=== PATIENT | female | born 1960 | race Caucasian/White ===

== ENCOUNTER 2016-07-28 16:25 | Emergency (ER) | payer BC ==
[2016-07-28] MEDS ORDERED: HYDROMORPHONE HCL 1 MG/ML CPJ IM ONE (17:05)
[2016-07-28] MEDS ORDERED: PROMETHAZINE HCL 25 MG/ML VIAL IM ONE (17:05)
[2016-07-28] MEDS ORDERED: IBUPROFEN 600 MG TABLET PO ONE (17:19)
[2016-07-28] MEDS ORDERED: IBUPROFEN 400 MG TABLET PO ONE (17:23)
--- NOTE | 2016-07-28 17:26 | Emergency Department Record ---
History of Present Illness - General Chief complaint: Lower Extremity Pain Stated complaint: R KNEE INJURY Time Seen by Provider: 07/28/16 16:53 Source: Patient Mode of Arrival: Wheelchair Limitations: No limitations - History of Present Illness Initial comments: pt was stepping onto a bus when she heard and felt a sudden pop in the back of her knee and had sudden pain and inability to walk.. MD Complaint: Extremity pain, Joint pain Onset/Timin -: Hour(s) Location: Right, Knee History of Same: Yes Radiation: Proximal, Distal Quality: Sharp Consistency: Intermittent Improves with: Immobilization Worsens with: Exertion, Walking, Weight bearing Associated Symptoms: Denies other symptoms - Related Data Home Medications Medication Instructions Recorded Confirmed Last Taken Levothyroxine Sodium [Levoxyl] 125 mcg PO DAILY 04/15/14 07/28/16 07/28/16 Albuterol Sulfate [Proair Hfa] 1 - 2 puff IH .EVERY 4-6 HOURS PRN 07/28/1607/28 Unknown Budesonide/Formoterol Fumarate 1 inh INH DAILY 07/28/16 07/28/16 07/28/16 [Symbicort 160-4.5 Mcg Inhaler] Hydrochlorothiazide [Hctz 12.5MG] 25 mg PO DAILY 07/28/16 07/28/16 07/28/16 Previous Rx's Medication Instructions Recorded Acetaminophen with Codeine 1 tab PO Q6H #14 tab 07/28/16 [Tylenol with Codeine #3] Allergies Allergy/AdvReac Type Severity Reaction Status Date / Time No Known Drug Allergies Allergy Verified 07/28/16 16:39 Travel Screening - Travel/Exposure Within Last 30 Days Have you traveled within the last 30 days?: No Review of Systems Reviewed: No additional complaints except as noted below Constitutional: Reports: As per HPI. Denies: Chills, Fever, Malaise, Night sweats, Weakness, Weight change Eyes: Reports: As per HPI. Denies: Eye discharge, Eye pain, Photophobia, Vision change ENT: Reports: As per HPI. Denies: Congestion, Dental pain, Ear pain, Epistaxis , Hearing loss, Throat pain Respiratory: Reports: As per HPI. Denies: Cough, Dyspnea, Hemoptysis, Stridor, Wheezes Cardiovascular: Reports: As per HPI. Denies: Arrhythmia, Chest pain, Dyspnea on exertion, Edema, Murmurs, Orthopnea, Palpitations, Paroxysmal nocturnal dyspnea, Rheumatic Fever, Syncope Endocrine: Reports: As per HPI. Denies: Fatigue, Heat or cold intolerance, Polydipsia, Polyuria Gastrointestinal: Reports: As per HPI. Denies: Abdominal pain, Constipation, Diarrhea, Hematemesis, Hematochezia, Melena, Nausea, Vomiting Genitourinary: Reports: As per HPI. Denies: Abnormal menses, Discharge, Dyspareunia, Dysuria, Frequency, Hematuria, Incontinence, Retention, Urgency Musculoskeletal: Reports: As per HPI. Denies: Arthralgia, Back pain, Gout, Joint swelling, Myalgia, Neck pain Skin: Reports: As per HPI. Denies: Bruising, Change in color, Change in hair/ nails, Lesions, Pruritus, Rash Neurological: Reports: As per HPI. Denies: Abnormal gait, Confusion, Headache, Numbness, Paresthesias, Seizure, Tingling, Tremors, Vertigo, Weakness Psychiatric: Reports: As per HPI. Denies: Anxiety, Auditory hallucinations, Depression, Homicidal thoughts, Suicidal thoughts, Visual hallucinations Hematological/Lymphatic: Reports: As per HPI. Denies: Anemia, Blood Clots, Easy bleeding, Easy bruising, Swollen glands Past Medical History - SOCIAL HISTORY Smoking Status: Former smoker Alcohol Use: None Drug Use: None - RESPIRATORY Hx Respiratory Disorders: Yes Hx COPD: Yes - CARDIOVASCULAR Hx Cardio Disorders: Yes Hx Hypertension: Yes - NEURO Hx Neuro Disorders: No - GI Hx GI Disorders: No - Hx Genitourinary Disorders: No - ENDOCRINE Hx Endocrine Disorders: Yes Hx Thyroid Disease: Yes - MUSCULOSKELETAL Hx Musculoskeletal Disorders: No - PSYCH Hx Psych Problems: No - HEMATOLOGY/ONCOLOGY Hx Hematology/Oncology Disorders: No Family Medical History Any Significant Family History?: No Physical Exam - General General Appearance: Alert, Oriented x3, Cooperative, No acute distress - Head Head exam: Normal inspection - Eye Eye exam: Normal appearance, PERRL, EOMI Pupils: Normal accommodation - ENT ENT exam: Normal exam, Mucous membranes moist, Normal external ear exam, Normal orophraynx, TM's normal bilaterally Ear exam: Normal external inspection. negative: External canal tenderness Nasal Exam: Normal inspection. negative: Discharge, Sinus tenderness Mouth exam: Normal external inspection, Tongue normal Teeth exam: Normal inspection. negative: Dental caries Throat exam: Normal inspection. negative: Tonsillar erythema, Tonsillar exudate - Neck Neck exam: Normal inspection, Full ROM. negative: Tenderness - Respiratory Respiratory exam: Normal lung sounds bilaterally. negative: Respiratory distress - Cardiovascular Cardiovascular Exam: Regular rate, Normal rhythm, Normal heart sounds - GI/Abdominal GI/Abdominal exam: Soft, Normal bowel sounds. negative: Tenderness - Rectal Rectal exam: Deferred - exam: Deferred - Extremities Extremities exam: Normal capillary refill, Tenderness. negative: Normal inspection, Full ROM Image of Full Body: 1 - tender, , no bunching of hamstring or gastroc, achilles intact - Back Back exam: Reports: Normal inspection, Full ROM. Denies: Muscle spasm, Rash noted, Tenderness - Neurological Neurological exam: Alert, Normal gait, Oriented X3, Reflexes normal - Psychiatric Psychiatric exam: Normal affect, Normal mood - Skin Skin exam: Dry, Intact, Normal color, Warm Course Vital Signs 07/28/16 16:33 Temperature 98.4 F Pulse Rate 72 Respiratory 20 Rate Blood Pressure 182/108 Pulse Ox 99 Disposition Disposition: Discharge Clinical Impression: Tear, knee, posterior cruciate ligament Qualifiers: Encounter type: initial encounter Laterality: right Qualified Code(s): S83.521A - Sprain of posterior cruciate ligament of right knee, initial encounter Disposition: Home, Self-Care Condition: (1) Good Instructions: Posterior Cruciate Ligament Injury (ED), Knee Immobilizer (ED) Additional Instructions: follow up with dr forrest . return sooner if worse Prescriptions: Acetaminophen with Codeine [Tylenol with Codeine #3] 1 tab PO Q6H #14 tab Referrals: SOURAV FORREST [DOCTOR OF OSTEOPATH] - [facility] [Provider Group] Forms: Patient Portal Access
[2016-07-28] MEDS ORDERED: ACETAMINOPHEN/CODEINE TABLET PO PRN (19:36)
--- NOTE | 2016-07-30 15:02 | RADIOLOGY REPORT ---
EXAM: RIGHT KNEE HISTORY: PATIENT FELL TODAY WITH RIGHT KNEE INJURY AND PAIN POSTERIORLY. TECHNIQUE: Four views of the right knee were obtained. Comparison: None. Encounter: Initial. FINDINGS: Mild degenerative arthritis right knee. No definite acute fracture, dislocation, or joint effusion identified. IMPRESSION: MILD DEGENERATIVE ARTHRITIS WITH NO DEFINITE FRACTURE OF THE RIGHT KNEE IDENTIFIED. JOB NUMBER: [id number] MTDD
== END 2016-07-28 20:04 | disposition home or self-care (01) ==
LOC: ER 16:25
DX: S83.521A Sprain of posterior cruciate ligament of right knee, initial encounter (principal); X50.9XXA Other and unspecified overexertion or strenuous movements or postures, initial encounter
CPT/HCPCS: 99283

== ENCOUNTER 2016-08-14 08:43 | Day surgery (SDC) | payer OTHER ==
[~2016-08-14 08:43] MED LIST: ACETAMINOPHEN 1,000 MG/100 ML BTL IV ONE
[2016-08-14] MEDS ORDERED: PROPOFOL 10 MG/ML VIAL IV ONE (14:00)
[2016-08-14] MEDS ORDERED: MIDAZOLAM HCL 2MG/2ML VIAL IV ONE (14:00)
[2016-08-14] MEDS ORDERED: LIDOCAINE 2% MDV (20MG/ML) 20ML VIAL IV ONE (14:00)
[2016-08-14] MEDS ORDERED: SEVOFLURANE 250 ML INH ONE (14:00)
[2016-08-14] MEDS ORDERED: ONDANSETRON HCL IV 4 MG/2 ML VIAL IVP ONE (14:00)
[2016-08-14] MEDS ORDERED: KETOROLAC 30 MG/ML VIAL IVP ONE (14:00)
[2016-08-14] MEDS ORDERED: FENTANYL PF 100MCG/2ML VIAL IV ONE (14:00)
[2016-08-14] MEDS ORDERED: HYDROMORPHONE HCL 2 MG/ML VIAL IV ONE (15:27)
[2016-08-14] MEDS ORDERED: BUPIVACAINE 0.25% W/EPI MPF 30ML VIAL IVP ONE (15:27)
[2016-08-14] MEDS ORDERED: MORPHINE SULFATE 5 MG/ML PFS IVP ONE (15:27)
[2016-08-14] MEDS ORDERED: OXYCODONE HCL/APAP 5MG/325MG TABLET PO ONE (15:27)
--- NOTE | 2016-08-19 11:20 | Operative Note ---
DATE OF SURGERY: 08/14/2016 Surgeon: Luis Polanco DO PREOPERATIVE DIAGNOSES: 1. Torn lateral meniscus of the right knee. 2. Chondromalacia of the right knee. POSTOPERATIVE DIAGNOSES: 1. Torn lateral meniscus of the right knee. 2. Chondromalacia of the medial femoral condyle and patella, right knee. OPERATION: 1. Arthroscopic partial lateral meniscectomy, right knee. 2. Arthroscopic chondroplasty of medial femoral condyle, right knee. PROCEDURE: This 56-year-old female was taken to the operating room and placed in the supine position on the operating room table where general anesthesia was induced. The right lower extremity was elevated. It was exsanguinated and tourniquet inflated to 300 mmHg. Arthroscopic knee trujillo applied. Right knee prepped with Hibiclens and draped in the usual sterile fashion. An inferolateral portal was established for the 4 mm arthroscope, and initial evaluation of the joint demonstrated normal appearance of the suprapatellar pouch; however, the patient did have grade 2 chondromalacia of the patella involving all articulating surfaces but it was not grossly unstable and was not further disturbed. The trochlea appeared to be relatively normal. The medial compartment was entered and probing of the medial compartment demonstrated grade 2 chondromalacia of the entire weightbearing surface of the medial femoral condyle with some loose flaps of articular cartilage which were shaved with the rotating shaver. Probing of the medial meniscus did not reveal any pathology. The intercondylar notch was examined and found to be normal. The lateral compartment was entered, and the patient had a tear of the posterior horn at the root of the meniscus but the root itself did not appear to be involved. A flap type tear was present. We resected the unstable fragments of the meniscus utilizing the rotating shaver and basket forceps. The small radial tears of the body of the lateral meniscus and anterior horn were also present, and these were shaved with the rotating shaver. The lateral meniscus was then re-probed and confirmed to be stable. The joint was irrigated and suctioned and the instruments were removed. The portals were infiltrated with 0.25% Marcaine with epinephrine. Sterile dressings applied. Tourniquet and knee trujillo released, and the patient taken to the recovery room in satisfactory condition. GROSS PATHOLOGY: This patient demonstrated tear of the posterior horn near the root of the lateral meniscus as well as small radial tears around the body and anterior horn. Also a grade 2 chondromalacia of the patella and medial femoral condyle was present as described above. CC: MD ALYSA Carrillo
== END 2016-08-14 11:40 | disposition home or self-care (01) ==
LOC: SUR 08:43
PROVIDERS: ATTEND Orthopaedic Surgery
DX: S83.241A Other tear of medial meniscus, current injury, right knee, initial encounter (principal); I10 Essential (primary) hypertension; E03.9 Hypothyroidism, unspecified; M94.261 Chondromalacia, right knee
CPT/HCPCS: 29881; 29879; 01400; J1885; J2405; J3010; J1170; J2270